=== PATIENT | male | born 1965 | race African-American/Black ===

== ENCOUNTER 2021-01-10 19:03 | Emergency (ER) | payer BC ==
--- NOTE | 2021-01-10 20:15 | EDM.PDOC ---
ED HPI GENERAL MEDICAL PROBLEM - General Chief Complaint: ENT Problem Stated Complaint: PARTIAL PLATE PINCHING GUMS Time Seen by Provider: 01/10/21 19:05 Source of Information: Reports: Patient History Limitations: Reports: No Limitations - History of Present Illness INITIAL COMMENTS - FREE TEXT/NARRATIVE: Mr. Trammell has come in with discomfort from a partial plate placed by his dentist on the previous day. The partial plate seems to be replacement for teeth 21,22 and 23 as well as #30. The patient would like for the plate to be removed. He and his have both tried but it is firmly stuck. No dental paste of any sort has been involved according to the patient. It is simply a pressure fit but he cannot remove it. There is been no fever swelling of the soft tissue, shortness of breath or any other symptom of acute medical illness otherwise. There are no risk factors. Patient has no medical problems, takes no medications, and is a non-smoker. Right Lower Jaw Pain Score (Numeric/FACES): 2 - Related Data Allergies Allergy/AdvReac Type Severity Reaction Status Date / Time iodine Allergy Swelling Verified 01/10/21 19:39 Past Medical History - Infectious Disease History Infectious Disease History: Reports: Chicken Pox - Past Surgical History GI Surgical History: Reports: Colonoscopy Other GI Surgeries/Procedures: 2017 Social & Family History - Family History Family Medical History: No Pertinent Family History - Tobacco Use Tobacco Use Status *Q: Never Tobacco User - Caffeine Use Caffeine Use: Reports: None - Recreational Drug Use Recreational Drug Use: No ED ROS ENT - Review of Systems Review Of Systems: Comprehensive ROS is negative, except as noted in HPI. ED EXAM, ENT - Physical Exam Exam: See Below Text/Narrative:: On physical exam the patient is alert and in no distress. He looks quite well actually. Skin warm and dry with normal turgor. Head normocephalic atraumatic. PERRLA EOMI. Neck is supple without jugular venous distention. Lungs are clear. Heart is regular. Abdomen is soft and nontender. There is no peripheral edema cyanosis or clubbing of the digits. Neurologically patient is intact with fluent speech symmetrical gait and no sensory or motor deficit. His affect and mood are light. He has good humored cognitively intact and appears quite well and robust. Dental plate is in place. This is a lower plate with teeth involved as noted above. The plate was removed without difficulty. There is no significant erosion or other injury evident to the oral mucosa. No evidence of odontogenic soft tissue infection. No tender teeth. Course - Vital Signs Text/Narrative:: The patient called his dentist while in the ER but there is been no call back. The dentist said she was going to be gone Tuesday and Tuesday, January 09 3 and , and the patient is going on vacation the night of the . At his request we have remove the plate uneventfully. He will leave the plate out as long as he is without dental reevaluation. Last Recorded V/S: Last Vital Signs Temp 37.4 C 01/10/21 19:25 Pulse 87 01/10/21 19:25 Resp 20 01/10/21 19:25 BP 158/112 H 01/10/21 19:25 Pulse Ox 98 01/10/21 19:25 Departure - Departure Time of Disposition: 20:17 Disposition: Home, Self-Care 01 Condition: Good Clinical Impression: Denture irritation Oral foreign body Qualifiers: Encounter type: initial encounter Qualified Code(s): T18.0XXA - Foreign body in mouth, initial encounter - Discharge Information Referrals: PCP,None [Primary Care Provider] - Additional Instructions: Your partial plate has been removed for irritation to your mouth. As we discussed you will leave it out until you can be seen by a dentist. For any other problems related to this do not hesitate to go to a local emergency department. We understand you are going out of town Tuesday evening. Hopefully your dentist will call back and give you some direction with regard to this. Sepsis Event Note (ED) - Evaluation Sepsis Screening Result: No Definite Risk - Focused Exam Vital Signs: Vital Signs Temp Pulse Resp BP Pulse Ox 01/10/21 19:25 37.4 C 87 20 158/112 H 98
== END 2021-01-10 20:35 | disposition home or self-care (01) ==
LOC: JD.ED 19:03
DX: M27.69 Other endosseous dental implant failure (principal); T18.0XXA Foreign body in mouth, initial encounter; Z91.048 Other nonmedicinal substance allergy status
CPT/HCPCS: 99282; 99283